=== PATIENT | female | born 2005 | race Caucasian/White ===

== ENCOUNTER 2024-02-28 | Emergency (ER) | payer OTHER, SELFPAY ==
--- NOTE | ~2024-02-28 | CT_ITS ---
EXAMINATION: CT HEAD WITHOUT CONTRAST CLINICAL INFORMATION: Headache for one month COMPARISON: None available. TECHNIQUE: Contiguous axial imaging was performed from the skull base to vertex without intravenous administration of contrast. This CT examination was performed using dose optimization techniques as appropriate, variously including the following: *Automated exposure control *Adjustment of mA and/or kV according to patient size (this includes techniques or standardized protocols for targeted exams where dose is matched to indication/reason for exam; i.e. extremities or head) *Use of iterative reconstruction technique DLP: 569 mGy-cm FINDINGS: No intracranial hemorrhage, tumors or acute infarcts identified. The ventricles and sulci are normal in size and configuration. No focal parenchymal lesions of the brain or abnormal extra-axial fluid collections. Normal appearance of the orbits and globes No significant opacification of the visualized paranasal sinuses, mastoid air cells and middle ear cavities. No extra cranial soft tissue inflammatory changes. CT/CT head/brain wo IV con IMPRESSION: Normal unenhanced CT of the head. Electronically signed by: Sekou Robertson MD 02/28/2024 05:20 AM EDT
[2024-02-28 00:07] VITALS: BP 125/74; PULSE 94; RESP 16; TEMP 36.6; O2SAT 96; BMI 22.4
--- NOTE | 2024-02-28 04:32 | ED_ITS ---
HPI - Headache General Chief Complaint: Headache Stated Complaint: Migraine X 4 Days Time Seen by Provider: 02/28/24 04:18 Source: patient Mode of arrival: ambulatory Limitations: no limitations History of Present Illness ED Provider: Dr. Capone HPI Narrative: patient with a long history of headache, never worked up with imaging. Recently started sumatryptan with no improvement. She presents anxious and crying scared about her headache and she cant sleep MD elicited complaint: headache Related Data Previous Rx's ?Medication ?Instructions ?Recorded metoclopramide HCl 10 mg tablet 10 mg PO Q6H PRN headache #14 tabs 02/28/24 (Reglan) naproxen 500 mg tablet (Naprosyn) 500 mg PO BID #20 tabs 02/28/24 Allergies Allergy/AdvReac Type Severity Reaction Status Date / Time Sulfa (Sulfonamide Allergy Hives Verified 02/28/24 00:09 Antibiotics) Review of Systems Review of Systems: Yes all other systems are reviewed and are negative Neurologic: Denies Sensory deficit (Neuro) [facility] Social History Social History Smoked in Last 30 Days: No Use of substances other than those prescribed or required for medical reasons: No Advance Directives: No Advance Directives Information Provided: No Do you have a plan to hurt others: No Plan Patient : No Physical Exam Vital Signs: Vital Signs: Last Vital Signs Temp 98.0 F 02/28/24 05:05 Pulse 87 02/28/24 05:05 Resp 18 02/28/24 05:05 BP 107/65 02/28/24 05:05 Pulse Ox 96 02/28/24 05:05 O2 Del Method Room Air 02/28/24 05:05 BMI result Body Mass Index 22.4 Const: Other: anxious, tearful female General: healthy appearing Nutritional Appearance: average body habitus Orientation/consciousness: oriented to person and patient oriented x3 Limitations: no limitations HEENT: Head: Yes normal to inspection Ears: external ears normal General nose exam: Normal external nose present Mouth: Normal oral and palatal mucosa present and oropharynx normal Throat: Yes posterior oropharynx normal Eyes: General: appearance normal, both eyes and all related structures Neck: Other: supple Neck: Yes normal visual inspection Chest: Chest palpation & inspection: normal inspection of the chest Resp: Auscultation: clear to auscultation bilaterally Cardio: Jugular venous distension: no JVD Rate: regular rate Rhythm: regular rhythm Heart sounds: S1 normal heart sound present and S2 normal heart sound present GI: Inspection: Yes normal to inspection Palpation (GI): Soft to palpation, nontender and No hepatosplenomegaly present Auscultation: normal bowel sounds : General: Yes no CVA tenderness Back/Spine/Pelvis: Back: no CVA tenderness Skin: General skin exam: no rashes or lesions noted Neuro: General: oriented to person and patient oriented x3 Cranial nerves: Yes CN's II-XII intact bilaterally Motor exam (neuro): 5/5 motor strength present throughout Sensory Exam: No Sensory deficit (Neuro) Extrem: General: Yes normal to inspection Psych: Appearance: grossly normal Course Reevaluation(s) Reevaluation #1: CT negative will dc on reglan and naproxyn for her migraine Time: 06:13 Medications Administered Discontinued Medications Generic Name Dose Route Start Last Admin Trade Name Freq PRN Reason Stop Dose Admin Ketorolac Tromethamine 30 mg 02/28/24 04:33 02/28/24 04:46 Ketorolac Tromethamine 30 Mg/Ml Vial IVPUSH 02/28/24 04:34 30 mg ONCE ONE Administration Metoclopramide HCl 10 mg 02/28/24 04:33 02/28/24 04:46 Metoclopramide Hcl 10 Mg/2 Ml Vial IVPUSH 02/28/24 04:34 10 mg ONCE ONE Administration Medical Decision Making Differential Diagnosis Differential Diagnoses: The differential diagnosis associated with the presentation includes (migraine, brain tumor, anxiety) Admission/Observation Consideration of admission/observation: Escalation of care including admission/observation considered (upon arrival patient considered for admission) Independent Interpretation I performed an independent interpretation of an: CT Scan (brain: no mass or blood) Radiology Impression Discussion of test interpretation with radiology: I have reviewed the radiologist's reading. (and agree) Discharge Plan Discharge Clinical Impression: Migraine Patient Disposition: Home, Self-Care Instructions: Migraine Headache (ED) Prescriptions: New naproxen [Naprosyn] 500 mg tablet 500 mg PO BID Qty: 20 0RF metoclopramide HCl [Reglan] 10 mg tablet 10 mg PO Q6H PRN (Reason: headache) Qty: 14 0RF Referrals: Physician,Unknown J [Primary Care Provider] - 5 days Print Language: Upper Sorbian
[2024-02-28] MEDS: Ketorolac Tromethamine 30 MG/ML VIAL IVPUSH (04:46)
[2024-02-28] MEDS: Metoclopramide HCl 10 MG/2 ML VIAL IVPUSH (04:46)
[2024-02-28 05:05] VITALS: BP 107/65; PULSE 87; RESP 18; TEMP 36.7; O2SAT 96
== END 2024-02-28 06:48 | disposition home or self-care (01) ==
PROVIDERS: Emergency Provider Emergency Medicine
DX: G43.909 Migraine, unspecified, not intractable, without status migrainosus (principal)
CPT/HCPCS: 70450; 96374; 96375; 99284; J1885; J2765